=== PATIENT | female | born 1965 | race Caucasian/White ===

== ENCOUNTER 2022-11-20 10:45 | Day surgery (SDC) | payer MEDICAID ==
[~2022-11-20 10:45] MED LIST: Bupivacaine 0.5% 30 ML SDV ONE; Lactated Ringers 1,000 ML IV SCH; Midazolam 1 MG/ML 2 ML SDV ONE; Nozin Nasal Sanitizer NASBOTH ONE; Propofol 200 MG/20 ML SDV ONE; fentaNYL 100 MCG/2 ML SDV ONE
[2022-11-20 11:06] LABS: HEMATOCRIT 45.6 % (34.3-46.0); HEMOGLOBIN 14.8 g/dL (11.2-15.5); MEAN CORPUSCULAR HEMOGLOBIN 30.3 pg (31.6-35.5); MEAN CORPUSCULAR HGB CONC 32.5 g/dL (31.6-35.5); MEAN CORPUSCULAR VOLUME 93.4 fL (81.4-99.0); RED BLOOD CELL COUNT 4.88 M/uL (3.77-5.24); WHITE BLOOD CELL COUNT,WBC 4.7 K/uL (3.2-11.0)
[2022-11-20 11:29] LABS: ALANINE AMINOTRANSFERASE,ALT 62 U/L (12-78); ALBUMIN 3.7 g/dL (3.4-5.0); ALKALINE PHOSPHATASE 128 U/L (46-116); ANION GAP 7.3 mmol/L (5.0-14.0); ASPARTATE AMNIOTRANSFERASE,AST 46 U/L (15-37); BILIRUBIN TOTAL 0.3 mg/dL (0.2-1.0); BLOOD UREA NITROGEN,BUN 16 mg/dL (7-18); CALCIUM 8.7 mg/dL (8.5-10.1); CARBON DIOXIDE,CO2 30 mmol/L (21-32); CHLORIDE,CL 104 mmol/L (100-108); CREATININE 1.1 mg/dL (0.6-1.0); EST CRCL DRUG DOSING (CG) 54.21 mL/min; ESTIMATED GFR 58 mL/min (>60); GLUCOSE RANDOM 105 mg/dL (74-106); PROTEIN TOTAL,TP 7.3 g/dL (6.4-8.2); SODIUM,NA 141 mmol/L (140-148)
[2022-11-20] MEDS ORDERED: ceFAZolin 2 GM in Premix Bag 1 BAG IV ONE (11:40)
[2022-11-20] MEDS ORDERED: Rocuronium 50 MG/5 ML Vial ONE (12:50)
[2022-11-20] MEDS ORDERED: Ondansetron 4 MG/2 ML SDV ONE (13:02)
[2022-11-20] MEDS ORDERED: Neostigmine Methylsulfate 1 MG/ML 5 ML Syringe ONE (13:02)
[2022-11-20] MEDS ORDERED: Dexamethasone 4 MG/ML SDV ONE (13:02)
[2022-11-20] MEDS ORDERED: Glycopyrrolate 0.2 MG/ML 5 ML MDV ONE (13:02)
[2022-11-20] MEDS ORDERED: fentaNYL 250 MCG/5 ML SDV ONE (13:04)
[2022-11-20] MEDS ORDERED: Bupivacaine 0.5% 30 ML SDV ONE (13:35)
== END 2022-11-20 15:45 | disposition home or self-care (01) ==
LOC: JP.SDS 10:45
PROVIDERS: ATTEND Specialist
DX: M75.41 Impingement syndrome of right shoulder (principal); E03.9 Hypothyroidism, unspecified; K21.9 Gastro-esophageal reflux disease without esophagitis; N17.9 Acute kidney failure, unspecified; Z88.5 Allergy status to narcotic agent; Z88.0 Allergy status to penicillin; Z88.2 Allergy status to sulfonamides
CPT/HCPCS: 29822; 36415; 64415; 80053; 85027; A9270; C1713; J1100; J2250; J2405; J2704; J2710; J3010; J3490; J7120